=== PATIENT | male | born 1980 ===

== ENCOUNTER 2021-08-16 06:53 | Outpatient (REF) | payer OTHER, SELFPAY ==
[2021-08-16 07:03] LABS: MANUAL DIFF FLAG NO
[2021-08-16 07:16] LABS: Basophils Percent Auto 0.2 % (0-2); Eosinophils Absolute Auto 0.2 X10*3/uL (0.0-0.4); Eosinophils Percent Auto 2.7 % (0-4); Hematocrit 43.9 % (42.0-52.0); Hemoglobin 14.5 g/dl (14.0-18.0); Imm Gran Abs Auto 0.02 X10*3/uL (0.00-0.03); Imm Gran Pct Auto 0.2 % (0.0-0.4); Lymphocytes Absolute Auto 2.7 X10*3/uL (1.2-4.9); Mean Corpuscular Hemoglobin 30.6 pg (27.0-33.0); Mean Corpuscular Volume 92.6 fL (80.0-98.0); Mean Platelet Volume 10.4 fL (9.4-12.4); Monocytes Absolute Auto 0.7 X10*3/uL (0.1-1.2); Monocytes Percent Auto 8.8 % (2-11); Neutrophils Absolute Auto 4.6 x10*3/uL (2.0-8.3); Neutrophils Percent Auto 56.1 % (45-73); Platelet Count 380 X10*3/uL (160-400); Red Blood Count 4.74 X10*6/uL (4.60-5.80); Red Cell Distribution Width 13.3 % (11.0-16.0); White Blood Count 8.3 X10*3/uL (4.8-10.8)
[2021-08-16 07:44] LABS: Hemoglobin A1c % > 14.0 %
[2021-08-16 07:45] LABS: Alanine Aminotransferase 22 U/L (0-40); Albumin Level 4.4 g/dL (3.5-5.0); Alkaline Phosphatase 145 U/L (39-117); Anion Gap 13 (12-20); Aspartate Amino Transferase 14 U/L (5-37); Bilirubin Total 0.4 mg/dL (0.0-1.0); Blood Urea Nitrogen 9 mg/dL (9-16); Calcium 10.6 mg/dL (8.4-10.2); Carbon Dioxide 30 mmol/L (22-29); Chloride 97 mmol/L (96-108); Cholesterol 379 mg/dL; Estimated Glomerular Filt Rate > 60; HDL Cholesterol 39 mg/dL; Potassium 4.4 mmol/L (3.3-5.1); Sodium 136 mmol/L (135-145); Total Protein 7.8 g/dL (6.5-8.0); Triglycerides 630 mg/dL
[2021-08-16 08:30] LABS: Glucose Fasting 363 mg/dL (60-99)
[2021-08-16 09:09] LABS: Creatinine Urine 77.71 mg/dL; Microalbum/Creatinine Ratio Ur 6.4 ug/mg cr
== END 2021-08-16 06:54 | disposition home or self-care (01) ==
LOC: HO.LAB 06:53
PROVIDERS: PCP Internal Medicine; Visit Provider Internal Medicine
DX: Z00.00 Encounter for general adult medical examination without abnormal findings (principal); E11.9 Type 2 diabetes mellitus without complications; E03.9 Hypothyroidism, unspecified
CPT/HCPCS: 36415; 80053; 80061; 82043; 83036; 84443; 85025

== ENCOUNTER 2024-07-20 11:21 | Outpatient (AMB) | payer OTHER, SELFPAY ==
[2024-07-20 11:32] VITALS: BP 140/82; PULSE 83; O2SAT 98; BMI 29.7
--- NOTE | 2024-07-20 11:32 | A.OFFPC_ITS ---
Vital Signs 07/20/24 11:32 Height 5 ft 9 in Weight 201 lb BMI 29.7 BP 140/82 H Blood Pressure Location Lt brachial Position Sitting Pulse 83 Pulse Source Pulse Oximeter Pulse Oximetry (%) 98 Oxygen Delivery Method Room Air Intake Visit Reasons: depression and anxiety Allergies No Known Allergies Allergy (Verified 07/20/24 11:32) Medication List - Last Reconciled 07/20/24 by Dallin Mcdaniels MD aspirin (Adult Aspirin Regimen) 81 mg PO DAILY atorvastatin 80 mg PO DAILY blood sugar diagnostic (FreeStyle Lite Strips) As directed cholecalciferol (vitamin D3) 50 mcg PO DAILY clopidogrel 75 mg PO DAILY insulin glargine (Lantus Solostar U-100 Insulin) 10 units (0.1 mL) subcut QPM insulin lispro (Humalog KwikPen (U-100) Insulin) 1 sliding scale dose subcut USEASDIRECTD 30 days lancets (FreeStyle Lancets) As directed metformin 500 mg PO DAILY metoprolol tartrate 25 mg PO DAILY Tobacco use date assessed: 07/20/24 Dental Screening Dental Screen Date: 07/20/24 Did you have a dental visit in the last 12 months?: No Did you have a dental problem in the last 6 months where you did not have access to dental care?: No Was dental information given to patient?: Patient has dentist HPI depression and anxiety HPI Details DM and hyperlipidemia on rx; takes meds regularly [facility] Medical History (Updated 08/17/21 @ 10:14 by Dallin Mcdaniels MD) Hyperlipidemia associated with type 2 diabetes mellitus Obesity Type 2 diabetes mellitus with morbid obesity Surgical History (Updated 04/27/21 @ 13:30 by LIZ Nolan) History of ankle surgery Family History (Updated 04/27/21 @ 13:30 by LIZ Nolan) Mother No problems noted. Father No problems noted. Social History Housing: Apartment Patient Tobacco Use Status: Current everyday Tobacco user Tobacco use type: Cigarette Cigarettes Per Day: 5 e-Cigarette/Vaping Use: Never Used Second Hand Smoke Exposure: No service: No Current occupational status: unemployed Cognitive needs: No Hearing needs: No Vision needs: Yes Questionnaire PHQ-9 Over the last 2 weeks, how often have you been bothered by any of the following problems? 1. Little interest or pleasure in doing things: several days 2. Feeling down, depressed, or hopeless: several days 3. Trouble falling or staying asleep, or sleeping too much: nearly every day 4. Feeling tired or having little energy: several days 5. Poor appetite or overeating: several days 6. Feeling bad about yourself - or that you are a failure or have let yourself or your family down: not at all 7. Trouble concentrating on things, such as reading the newspaper or watching television: several days 8. Moving or speaking so slowly that other people could have noticed. Or the opposite - being so fidgety or restless that you have been moving around a lot more than usual: not at all 9. Thoughts that you would be better off or of hurting yourself in some way: not at all Total score: 8 Depression Screening Interpretation: Positive Depression Screening Done: Yes Source: Developed by Drs. Bakari Rust, Kary Crenshaw, Franky Hicks and colleagues, with an educational hernan from [employer]. Thrive Questionnaire Date Thrive assessed: 07/20/24 I am a: Patient What is your living situation today?: I have a steady place to live Within the past 12 months, did the food you bought not last and you didn't have the money to get more?: Never true Within the past 12 months, did you worry whether your food would run out before you got money to buy more?: Never true Do you have trouble paying for medicines?: No Do you have trouble getting transportation to medical appointments?: No Do you have trouble paying your heating and electricity bill?: No Do you have trouble taking care of your child, family member or friend?: No Do you have trouble with day-to-day activities such as bathing, preparing meals, shopping, managing finances, etc.?: No Are you currently unemployed and looking for a job?: No Are you interested in more education?: No Currently or been in a relationship where the following occur: No concerns reported THRIVE Score: 0 AUDIT C Alcohol Use Questionnaire (AUDIT-C) 1. How often do you have a drink containing alcohol?: 2-4 times a month 2. How many drinks containing alcohol do you have on a typical day when you are drinking?: 3 or 4 3. How often do you have six or more drinks on one occasion?: Never Total Score: 3 Score Reviewed/Action Taken: Yes CHICHI-7 AMB Questionnaire CHICHI-7 Date CHICHI - 7 assessed: 07/20/24 Feeling nervous, anxious, or on edge: 2 = More than half the days Not being able to stop or control worryin = More than half the days Worrying too much about different things: 2 = More than half the days Trouble relaxin = More than half the days Being so restless that it is hard to sit still: 0 = Not at all Becoming easily annoyed or irritable: 1 = Several days Feeling afraid as if something awful might happen: 0 = Not at all Total CHICHI-7 score (0-4 normal; 5-9 mild; 10-14 moderate; 15-21 severe): 9 Source: Developed by Drs. Bakari Rust, Kary Crenshaw, Franky Hicks and colleagues, with an educational hernan from [employer]. Review of Systems Const Denies chills, Denies headache(s) and Denies weight loss ENT Denies headache(s) Card Denies chest pain, Denies syncope, Denies irregular heart rhythm and Denies dyspnea Resp Denies chest congestion, Denies cough and Denies dyspnea GI Denies abdominal pain, Denies change in stool character, Denies nausea and Denies vomiting Musc Denies deformity and Denies joint swelling Neuro Denies syncope and Denies headache(s) Physical exam (Primary Care) Vital Signs: Last Vital Signs Pulse 83 07/20/24 11:32 BP 140/82 H 07/20/24 11:32 Pulse Ox 98 07/20/24 11:32 Oxygen Delivery Method Room Air 07/20/24 11:32 BMI result Body Mass Index 29.7 Tobacco/Smoking Status: Tobacco use Status Tobacco use date assessed 07/20/24 07/20/24 11:33 Patient Tobacco Use Status Current everyday Tobacco 07/20/24 11:33 Tobacco use type Cigarette 07/20/24 11:33 e-Cigarette/Vaping Use Never Used 07/20/24 11:33 PHQ-9: PHQ-9 Score PHQ-9: Total score 8 07/20/24 11:47 Depression Screening Interpretation: Positive Thrive Assessment: Date of Thrive Assessment Date Thrive assessed 07/20/24 07/20/24 11:33 Currently or been in a relationship where the following occur: No concerns reported Const General: cooperative, comfortable, no acute distress and alert Neck Neck: Yes no lymphadenopathy Thyroid: Thyroid normal Resp Effort & Inspection: normal respiratory effort Auscultation: clear to auscultation bilaterally Percussion: percussion normal Cardio Jugular venous distension: no JVD Palpation: normal PMI Rate: regular rate Rhythm: regular rhythm Heart sounds: S1 normal heart sound present and S2 normal heart sound present GI Inspection: Yes normal to inspection Palpation (GI): No hepatosplenomegaly present Skin General skin exam: no rashes or lesions noted Extrem General: Yes no clubbing, cyanosis or edema Results AMB Hemoglobin A1c AMB Hemoglobin A1c 11.4 % Last Edit by Evelyne Posada CMA on 07/20/24 11:48 Results Reviewed Results Reviewed: Laboratory Last Values Hgb A1c (Clinic) 11.4 % (4.0-6.0) H 07/20/24 11:34 Coding Level of Care Code Est Pt Level 3 (54390) Diagnoses Hyperlipidemia associated with type 2 diabetes mellitus E11.69; E78.5 Assessment & Plan Assessment & Plan (1) Hyperlipidemia associated with type 2 diabetes mellitus: Code(s): E11.69 - Type 2 diabetes mellitus with other specified complication; E78.5 - Hyperlipidemia, unspecified Category: Medical Plan: do labs and f/u Orders: Orders Lipid Panel Today Z13.220 - Encounter for screening for lipoid disorders Hemoglobin A1c Today R73.9 - Hyperglycemia, unspecified AMB Hemoglobin A1c Today Z13.9 - Encounter for screening, unspecified Thyroid Stimulating Hormone Today Z13.29 - Encounter for screening for other suspected endocrine disorder Microalbumin, Random (w Creat) Today E11.69 - Type 2 diabetes mellitus with other specified complication, E66.01 - Morbid (severe) obesity due to excess calories Complete Blood Count Auto Diff Today Z13.0 - Encounter for screening for diseases of the blood and blood-forming organs and certain disorders involving the immune mechanism Comprehensive [place]. Panel Fast Today Z13.9 - Encounter for screening, unspecified Medications: Refilled atorvastatin 80 mg PO DAILY 90 tabs 1RF insulin lispro (Humalog KwikPen (U-100) Insulin) 1 sliding scale dose subcut USEASDIRECTD 15 mL 4RF 30 days metformin 500 mg PO DAILY 90 tabs 1RF metoprolol tartrate 25 mg PO DAILY 90 tabs 1RF clopidogrel 75 mg PO DAILY 90 tabs 1RF insulin glargine (Lantus Solostar U-100 Insulin) 10 units (0.1 mL) subcut QPM 15 mL 1RF
== END 2024-07-20 12:03 | disposition home or self-care (01) ==
PROVIDERS: PCP Internal Medicine; Visit Provider Internal Medicine
DX: E11.69 Type 2 diabetes mellitus with other specified complication (principal); E78.5 Hyperlipidemia, unspecified; Z13.9 Encounter for screening, unspecified

== ENCOUNTER → 2024-07-20 11:21 | Outpatient (BNVA) | payer OTHER, SELFPAY | PROVIDERS: PCP Internal Medicine; Visit Provider Internal Medicine | DX: E11.69 Type 2 diabetes mellitus with other specified complication (principal); E78.5 Hyperlipidemia, unspecified | CPT/HCPCS: 83036; 99212 ==

== ENCOUNTER 2024-07-27 08:53 | Outpatient (REF) | payer OTHER, SELFPAY ==
[2024-07-27 09:09] LABS: MANUAL DIFF FLAG NO
[2024-07-27 09:51] LABS: Basophils Percent Auto 0.4 % (0-2); Eosinophils Absolute Auto 0.2 X10*3/uL (0.0-0.4); Eosinophils Percent Auto 2.3 % (0-4); Hematocrit 40.8 % (42.0-52.0); Hemoglobin 14.2 g/dl (14.0-18.0); Imm Gran Abs Auto 0.02 X10*3/uL (0.00-0.03); Imm Gran Pct Auto 0.3 % (0.0-0.4); Lymphocytes Absolute Auto 2.4 X10*3/uL (1.2-4.9); Mean Corpuscular HGB Conc 34.8 g/dl (31.0-36.0); Mean Corpuscular Hemoglobin 31.7 pg (27.0-33.0); Mean Corpuscular Volume 91.1 fL (80.0-98.0); Monocytes Absolute Auto 0.5 X10*3/uL (0.1-1.2); Monocytes Percent Auto 6.7 % (2-11); Neutrophils Absolute Auto 4.7 x10*3/uL (2.0-8.3); Neutrophils Percent Auto 59.3 % (45-73); Platelet Count 351 X10*3/uL (160-400); Red Blood Count 4.48 X10*6/uL (4.60-5.80); Red Cell Distribution Width 13.2 % (11.0-16.0); White Blood Count 7.9 X10*3/uL (4.8-10.8)
[2024-07-27 10:05] LABS: Estimated Average Glucose 309 mg/dL; Hemoglobin A1C 398.0097 umol/L; Hemoglobin A1c % 12.4 % (<6.0)
[2024-07-27 10:52] LABS: Creatinine Urine 104.99 mg/dL; Microalbum/Creatinine Ratio Ur 9.5 ug/mg cr (<30)
[2024-07-27 11:08] LABS: Alanine Aminotransferase 86 U/L (0-40); Albumin Level 4.3 g/dL (3.5-5.0); Alkaline Phosphatase 118 U/L (39-117); Anion Gap 14 (12-20); Aspartate Amino Transferase 19 U/L (5-37); Bilirubin Total 0.5 mg/dL (0.0-1.0); Blood Urea Nitrogen 7 mg/dL (9-16); Calcium 9.8 mg/dL (8.4-10.2); Carbon Dioxide 27 mmol/L (22-29); Chloride 98 mmol/L (96-108); Cholesterol 284 mg/dL (<200); Estimated Glomerular Filt Rate > 60; Glucose Fasting 407 mg/dL (60-99); HDL Cholesterol 37 mg/dL (>40); Potassium 3.9 mmol/L (3.3-5.1); Sodium 135 mmol/L (135-145); Total Protein 7.7 g/dL (6.5-8.0); Triglycerides 412 mg/dL (<150)
== END 2024-07-27 08:54 | disposition home or self-care (01) ==
LOC: HO.LAB 08:53
PROVIDERS: PCP Internal Medicine; Visit Provider Internal Medicine
DX: Z13.29 Encounter for screening for other suspected endocrine disorder (principal); Z13.220 Encounter for screening for lipoid disorders; E11.69 Type 2 diabetes mellitus with other specified complication; E66.01 Morbid (severe) obesity due to excess calories; Z13.0 Encounter for screening for diseases of the blood and blood-forming organs and certain disorders involving the immune mechanism; Z13.9 Encounter for screening, unspecified
CPT/HCPCS: 36415; 80053; 80061; 82043; 82570; 83036; 84443; 85025

== ENCOUNTER 2024-08-03 09:14 | Outpatient (AMB) | payer OTHER, SELFPAY ==
[2024-08-03 09:16] VITALS: BP 142/80; PULSE 89; O2SAT 97
--- NOTE | 2024-08-03 09:16 | MHC.PC.OV ---
Vital Signs 08/03/24 09:16 Height 5 ft 9 in Weight 203 lb BMI 30.0 BP 142/80 H Blood Pressure Location Lt brachial Position Sitting Pulse 89 Pulse Source Pulse Oximeter Pulse Oximetry (%) 97 Oxygen Delivery Method Room Air Intake Visit Reasons: Follow up for labs Allergies No Known Allergies Allergy (Verified 08/03/24 09:16) Medication List - Last Reconciled 08/03/24 by Dallin Mcdaniels MD aspirin (Adult Aspirin Regimen) 81 mg PO DAILY atorvastatin 80 mg PO DAILY blood sugar diagnostic (FreeStyle Lite Strips) As directed cholecalciferol (vitamin D3) 50 mcg PO DAILY clopidogrel 75 mg PO DAILY insulin glargine (Lantus Solostar U-100 Insulin) 10 units (0.1 mL) subcut QPM insulin lispro (Humalog KwikPen (U-100) Insulin) 1 sliding scale dose subcut USEASDIRECTD 30 days lancets (FreeStyle Lancets) As directed metformin 500 mg PO DAILY metoprolol tartrate 25 mg PO DAILY sertraline 25 mg PO DAILY Tobacco use date assessed: 07/20/24 Dental Screening Dental Screen Date: 07/20/24 HPI Follow up for labs HPI Details DM in poor control; not taking his insulin; needs refills [facility] Medical History (Updated 08/03/24 @ 10:11 by Dallin Mcdaniels MD) Hyperlipidemia associated with type 2 diabetes mellitus Obesity Type 2 diabetes mellitus with morbid obesity Surgical History (Updated 04/27/21 @ 13:30 by LIZ Nolan) History of ankle surgery Family History (Updated 04/27/21 @ 13:30 by LIZ Nolan) Mother No problems noted. Father No problems noted. Social History Housing: Apartment Patient Tobacco Use Status: Current everyday Tobacco user Tobacco use type: Cigarette Cigarettes Per Day: 5 e-Cigarette/Vaping Use: Never Used Second Hand Smoke Exposure: No service: No Current occupational status: unemployed Cognitive needs: No Hearing needs: No Vision needs: Yes Questionnaire Thrive Questionnaire Date Thrive assessed: 07/20/24 AUDIT C Alcohol Use Questionnaire (AUDIT-C) 1. How often do you have a drink containing alcohol?: 2-4 times a month 2. How many drinks containing alcohol do you have on a typical day when you are drinking?: 3 or 4 3. How often do you have six or more drinks on one occasion?: Never Total Score: 3 Score Reviewed/Action Taken: Yes CHICHI-7 AMB Questionnaire CHICHI-7 Date CHICHI - 7 assessed: 07/20/24 Source: Developed by Drs. Bakari Rust, Kary Crenshaw, Franky Hicks and colleagues, with an educational hernan from [employer]. Review of Systems Const Denies chills, Denies headache(s) and Denies weight loss ENT Denies headache(s) Card Denies chest pain, Denies syncope, Denies irregular heart rhythm and Denies dyspnea Resp Denies chest congestion, Denies cough and Denies dyspnea GI Denies abdominal pain, Denies change in stool character, Denies nausea and Denies vomiting Musc Denies deformity and Denies joint swelling Neuro Denies syncope and Denies headache(s) Physical exam (Primary Care) Vital Signs: Last Vital Signs Pulse 89 08/03/24 09:16 BP 142/80 H 08/03/24 09:16 Pulse Ox 97 08/03/24 09:16 Oxygen Delivery Method Room Air 08/03/24 09:16 BMI result Body Mass Index 30.0 Tobacco/Smoking Status: Tobacco use Status Tobacco use date assessed 07/20/24 08/03/24 09:17 Patient Tobacco Use Status Current everyday Tobacco 08/03/24 09:17 Tobacco use type Cigarette 08/03/24 09:17 e-Cigarette/Vaping Use Never Used 08/03/24 09:17 Thrive Assessment: Date of Thrive Assessment Date Thrive assessed 07/20/24 08/03/24 09:17 Const General: cooperative, comfortable, no acute distress and alert Neck Neck: Yes no lymphadenopathy Thyroid: Thyroid normal Resp Effort & Inspection: normal respiratory effort Auscultation: clear to auscultation bilaterally Percussion: percussion normal Cardio Jugular venous distension: no JVD Palpation: normal PMI Rate: regular rate Rhythm: regular rhythm Heart sounds: S1 normal heart sound present and S2 normal heart sound present GI Inspection: Yes normal to inspection Palpation (GI): No hepatosplenomegaly present Skin General skin exam: no rashes or lesions noted Extrem General: Yes no clubbing, cyanosis or edema Coding Level of Care Code Est Pt Level 3 (88781) Diagnoses Diabetes mellitus with hyperglycemia E11.65 Assessment & Plan Assessment & Plan (1) Diabetes mellitus with hyperglycemia: Code(s): E11.65 - Type 2 diabetes mellitus with hyperglycemia Category: Medical Plan: rx sent Orders: Orders Lipid Panel Today Z13.220 - Encounter for screening for lipoid disorders Hemoglobin A1c Today R73.9 - Hyperglycemia, unspecified Glucose Fasting Today R73.9 - Hyperglycemia, unspecified Medications: New sertraline 25 mg PO DAILY 30 tabs 3RF Refilled insulin lispro (Humalog KwikPen (U-100) Insulin) 1 sliding scale dose subcut USEASDIRECTD 15 mL 4RF 30 days insulin glargine (Lantus Solostar U-100 Insulin) 10 units (0.1 mL) subcut QPM 15 mL 1RF
== END 2024-08-03 11:23 | disposition home or self-care (01) ==
PROVIDERS: PCP Internal Medicine; Visit Provider Internal Medicine
DX: E11.65 Type 2 diabetes mellitus with hyperglycemia (principal)

== ENCOUNTER → 2024-08-03 09:14 | Outpatient (BNVA) | payer OTHER, SELFPAY | PROVIDERS: PCP Internal Medicine; Visit Provider Internal Medicine | DX: E11.65 Type 2 diabetes mellitus with hyperglycemia (principal) | CPT/HCPCS: 99212 ==

== ENCOUNTER 2025-05-26 10:58 | Outpatient (AMB) | payer OTHER, SELFPAY ==
[2025-05-26 11:00] VITALS: BP 160/90; PULSE 83; RESP 18; TEMP 36.3; O2SAT 98; BMI 30.3
--- NOTE | 2025-05-26 11:00 | MHC.PC.OV ---
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 Accompanied by: Self / Same As Patient Allergies No Known Allergies Allergy (Verified 05/26/25 11:18) Medication List - Last Reconciled 05/26/25 by SHIRLEY Borges aspirin (Adult Aspirin Regimen) 81 mg PO DAILY atorvastatin 80 mg PO DAILY blood sugar diagnostic (FreeStyle Lite Strips) As directed cholecalciferol (vitamin D3) 50 mcg PO DAILY clopidogrel 75 mg PO DAILY insulin glargine (Lantus Solostar U-100 Insulin) 10 units (0.1 mL) subcut QPM insulin lispro (Humalog KwikPen (U-100) Insulin) 1 sliding scale dose subcut USEASDIRECTD 30 days lancets (FreeStyle Lancets) As directed metformin 500 mg PO DAILY metoprolol tartrate 25 mg PO DAILY sertraline 25 mg PO DAILY Tobacco use date assessed: 05/26/25 Dental Screening Dental Screen Date: 05/26/25 Did you have a dental visit in the last 12 months?: Yes Did you have a dental problem in the last 6 months where you did not have access to dental care?: No Was dental information given to patient?: Patient has dentist HPI AUGUSTO DR Mcdaniels/ KAVEH HPI Details The patient is 44 year old male with significant past medical history of HTN, diabetes mellitus, HLD, obesity. The patient is transitioning care from Dr. Mcdaniels who retired Patient last labs reviewed showed A1c 10%, elevated cholesterol particularly triglycerides and elevated liver enzymes on labs in July of last year The patient blood pressure was also elevated in office. The patient reports medication compliance. He reports tingling in his toes. Patient denies chest pain, shortness of breath, heart palpitation or dizziness Patient is requesting a pT1 form, reports even though he has a car at times, he is unable to get it on the road, causing him to miss appointments. Reports that he has not had a physical in a while [facility], [facility] Medical History Hyperlipidemia associated with type 2 diabetes mellitus Obesity Type 2 diabetes mellitus with morbid obesity Surgical History History of ankle surgery Family History Mother No problems noted. Father No problems noted. Social History Housing: Apartment Patient Tobacco Use Status: Current everyday Tobacco user Tobacco use type: Cigarette Cigarettes Per Day: 5 e-Cigarette/Vaping Use: Never Used Second Hand Smoke Exposure: No service: No Current occupational status: unemployed Cognitive needs: No Hearing needs: No Vision needs: Yes Questionnaire PHQ-9 Over the last 2 weeks, how often have you been bothered by any of the following problems? 1. Little interest or pleasure in doing things: not at all 2. Feeling down, depressed, or hopeless: not at all 3. Trouble falling or staying asleep, or sleeping too much: nearly every day 4. Feeling tired or having little energy: more than half the days 5. Poor appetite or overeating: several days 6. Feeling bad about yourself - or that you are a failure or have let yourself or your family down: not at all 7. Trouble concentrating on things, such as reading the newspaper or watching television: not at all 8. Moving or speaking so slowly that other people could have noticed. Or the opposite - being so fidgety or restless that you have been moving around a lot more than usual: not at all 9. Thoughts that you would be better off or of hurting yourself in some way: not at all Total score: 6 Source: Developed by Drs. Bakari Rust, Kary Crenshaw, Franky Hicks and colleagues, with an educational hernan from [employer]. Thrive Questionnaire Date Thrive assessed: 07/20/24 I am a: Patient What is your living situation today?: I have a steady place to live Within the past 12 months, did the food you bought not last and you didn't have the money to get more?: Never true Within the past 12 months, did you worry whether your food would run out before you got money to buy more?: Never true Do you have trouble paying for medicines?: No Do you have trouble getting transportation to medical appointments?: No Do you have trouble paying your heating and electricity bill?: No Do you have trouble taking care of your child, family member or friend?: No Do you have trouble with day-to-day activities such as bathing, preparing meals, shopping, managing finances, etc.?: No Are you currently unemployed and looking for a job?: No Are you interested in more education?: No Please select the resources that you would like help with: None Currently or been in a relationship where the following occur: I choose not to answer THRIVE Score: 0 AUDIT C Alcohol Use Questionnaire (AUDIT-C) 1. How often do you have a drink containing alcohol?: Monthly or less 2. How many drinks containing alcohol do you have on a typical day when you are drinking?: 3 or 4 3. How often do you have six or more drinks on one occasion?: Never Total Score: 2 CHICHI-7 AMB Questionnaire CHICHI-7 Date CHICHI - 7 assessed: 07/20/24 Feeling nervous, anxious, or on edge: 0 = Not at all Not being able to stop or control worryin = Not at all Worrying too much about different things: 0 = Not at all Trouble relaxin = Several days Being so restless that it is hard to sit still: 0 = Not at all Becoming easily annoyed or irritable: 1 = Several days Feeling afraid as if something awful might happen: 0 = Not at all Total CHICHI-7 score (0-4 normal; 5-9 mild; 10-14 moderate; 15-21 severe): 2 Source: Developed by Drs. Bakari Rust, Kary Crenshaw, Franky Hicks and colleagues, with an educational hernan from [employer]. Review of Systems Const Denies headache(s) Eyes Denies loss of vision ENT Denies vertigo, Denies dizziness, Denies headache(s) and Denies sore throat Card Denies chest pain, Denies leg edema and Denies lightheadedness Resp Denies cough, Denies hemoptysis and Denies wheezing GI Denies abdominal pain, Denies melena, Denies constipation, Denies diarrhea and Denies vomiting Denies dysuria, Denies urinary frequency and Denies urinary urgency Musc Denies arthralgias, Denies joint swelling, Denies numbness and Reports tingling (bilateral toes) Neuro Denies Abnormal speech present, Denies behavioral changes, Denies vertigo, Denies dizziness, Denies headache(s), Denies loss of vision, Denies memory loss, Denies numbness and Reports tingling (bilateral toes) Psych Denies anxiety, Denies behavioral changes, Denies depression, Denies memory loss and Denies panic attacks Jourdan/Lymph Denies easy bleeding and Denies easy bruising Aller/Immun Denies wheezing Physical exam (Primary Care) Vital Signs: Last Vital Signs Temp 97.3 F 05/26/25 11:00 Pulse 83 05/26/25 11:00 Resp 18 05/26/25 11:00 BP 142/78 H 05/26/25 11:45 Pulse Ox 98 05/26/25 11:00 Oxygen Delivery Method Room Air 05/26/25 11:00 BMI result Body Mass Index 30.3 Tobacco/Smoking Status: Tobacco use Status Tobacco use date assessed 05/26/25 05/26/25 11:06 Patient Tobacco Use Status Current everyday Tobacco 05/26/25 11:06 Tobacco use type Cigarette 05/26/25 11:06 e-Cigarette/Vaping Use Never Used 05/26/25 11:06 PHQ-9: PHQ-9 Score PHQ-9: Total score 6 05/26/25 11:45 Thrive Assessment: Date of Thrive Assessment Date Thrive assessed 07/20/24 05/26/25 11:06 Currently or been in a relationship where the following occur: I choose not to answer Const General: healthy appearing, no acute distress, alert and awake Nutritional Appearance: well nourished Orientation/consciousness: oriented to person, oriented to place and oriented to time HENMT Ears: TM's normal bilaterally General nose exam: Normal nasal mucous membranes and turbinates present Eyes Conjunctivae: conjunctivae normal Sclerae: sclerae normal Pupils: Equal, round and reactive pupils present Neck Neck: Yes no lymphadenopathy and Yes no JVD Thyroid: Thyroid normal Carotids: no bruits Resp Effort & Inspection: normal respiratory effort and not tachypneic Auscultation: no crackles, no rales, no rhonchi and no wheezes Cardio Rate: regular rate Rhythm: regular rhythm Heart sounds: no murmurs and normal S1 and S2 GI Palpation (GI): Soft to palpation, nontender, no hepatomegaly and no splenomegaly Auscultation: normal bowel sounds Skin General skin exam: no rashes or lesions noted and dry skin Neuro General: oriented to person, oriented to place and oriented to time Cranial nerves: Yes Equal, round and reactive pupils present Speech: No Abnormal speech present Gait exam (Neuro): Normal gait present Motor exam (neuro): no tremor noted Extrem Right upper extremity: full ROM Left upper extremity: full ROM Right lower extremity: full ROM; no edema Left lower extremity: full ROM; no edema Psych Mental Status: mental status grossly normal Speech and movement: Normal speech and movement present Affect: normal affect Attitude: cooperative Thought process: Normal thought process present Results AMB Hemoglobin A1c AMB Hemoglobin A1c 10.0 % Last Edit by Audrey Palm CMA on 05/26/25 11:20 Results Reviewed Results Reviewed: Laboratory Last Values Hgb A1c (Clinic) 10.0 % (4.0-6.0) H 05/26/25 11:17 Coding Level of Care Code Est Pt Level 4 (12634) Diagnoses Hypertension, unspecified type I10 Hypertension type: unspecified Type 2 diabetes mellitus with morbid obesity E11.69; E66.01 Hyperlipidemia, unspecified hyperlipidemia type E78.5 Hyperlipidemia type: unspecified Class 1 obesity with serious comorbidity and body mass index (BMI) of 30.0 to 30.9 in adult, unspecified obesity type E66.811; Z68.30 Body mass index: BMI 30.0-30.9 Obesity classification: adult class 1 (BMI 30 - 34.9) Obesity type: unspecified obesity type Serious obesity comorbidity presence: with serious comorbidity Vitamin D deficiency E55.9 Elevated liver enzymes R74.8 Elevated alkaline phosphatase level R74.8 Time Spent (min) 39 Assessment & Plan Assessment & Plan (1) HTN (hypertension): Code(s): I10 - Essential (primary) hypertension Category: Medical Qualifiers: Hypertension type: unspecified Qualified Code(s): I10 - Essential (primary) hypertension Plan: Initial blood pressure was 160/90, rechecked blood pressure 142/78. Reinforced low-salt diet. Continue metoprolol 25 mg daily. Add hydrochlorothiazide 12.5 mg daily. Encouraged the patient to continue checking blood pressure at home and contact office if his systolic drops below 110 mmhg. Patient to return in 8 weeks for complete physical. (2) Type 2 diabetes mellitus with morbid obesity: Comment: 40 min reviewing chart eval pt and documenting; do labs and f/u 2-3 weeks Code(s): E11.69 - Type 2 diabetes mellitus with other specified complication; E66.01 - Morbid (severe) obesity due to excess calories Category: Medical Plan: A1c 10% in office today, previous was 12.4 % on 07/27/24, and 11.4 % on 07/20/24. Reinforced low sugar/carbohydrate diet and activity as tolerated. The patient is currently on Lantus 10 units daily. Reports that he has not taken his fast acting insulin, he is on metformin 500 mg daily. Discussed with the patient the risk of having an A1c of 10% for a prolonged period. The patient Lantus was increased to 14 units daily, metformin increase to 500 mg b.i.d. we will repeat A1c in 3 months. (3) HLD (hyperlipidemia): Code(s): E78.5 - Hyperlipidemia, unspecified Category: Medical Qualifiers: Hyperlipidemia type: unspecified Qualified Code(s): E78.5 - Hyperlipidemia, unspecified Plan: Triglycerides 412, total chol 284, HDL 37 Explained to the patient that his triglycerides are elevated because his blood sugar is not control. He is currently on atorvastatin 80 mg daily. The patient reports that he is compliant with medication; however, did not recognize the medication in chart. Encouraged low-cholesterol diet and med compliance. We will recheck lipid panel in 3 months (4) Obesity: Comment: see above Code(s): E66.9 - Obesity, unspecified Category: Medical Qualifiers: Body mass index: BMI 30.0-30.9 Obesity classification: adult class 1 (BMI 30 - 34.9) Obesity type: unspecified obesity type Serious obesity comorbidity presence: with serious comorbidity Qualified Code(s): E66.811 - Obesity, class 1; Z68.30 - Body mass index [BMI] 30.0-30.9, adult Plan: Encouraged to exercise for at least 30 minutes a day/5 days a week Healthy eating discussed. Encouraged to eat fruits/vegetables, protein-fish/baked chicken, and to avoid salty/fried foods, sweets, caffeine and carbohydrates. Encouraged to increase water intake 6-8 glasses a day (5) Vitamin D deficiency: Code(s): E55.9 - Vitamin D deficiency, unspecified Category: Medical Plan: Continue cholecalciferol 50 mcg daily (6) Elevated liver enzymes: Code(s): R74.8 - Abnormal levels of other serum enzymes Category: Medical Plan: We will repeat CMP Limits alcohol/drug containing Tylenol or acetaminophen/fatty foods intake (7) Elevated alkaline phosphatase level: Code(s): R74.8 - Abnormal levels of other serum enzymes Category: Medical Plan: Repeat CMP and add GGT to further evaluate Orders: Orders Complete Blood Count Auto Diff Today E11.65 - Type 2 diabetes mellitus with hyperglycemia, E11. - Type 2 diabetes mellitus with other specified complication, E78.5 - Hyperlipidemia, unspecified, I10 - Essential (primary) hypertension UA CC w/rflx Micro + Cult Today E11.65 - Type 2 diabetes mellitus with hyperglycemia, . - Type 2 diabetes mellitus with other specified complication, E78.5 - Hyperlipidemia, unspecified, I10 - Essential (primary) hypertension Vitamin D 25-OH Total Today E11.65 - Type 2 diabetes mellitus with hyperglycemia, E11.69 - Type 2 diabetes mellitus with other specified complication, E78.5 - Hyperlipidemia, unspecified, I10 - Essential (primary) hypertension AMB Hemoglobin A1c Today Z13.9 - Encounter for screening, unspecified Comprehensive [place]. Panel Fast Today E11.65 - Type 2 diabetes mellitus with hyperglycemia, E11.69 - Type 2 diabetes mellitus with other specified complication, E78.5 - Hyperlipidemia, unspecified, I10 - Essential (primary) hypertension Lipid Panel Today E11.65 - Type 2 diabetes mellitus with hyperglycemia, E11.69 - Type 2 diabetes mellitus with other specified complication, E78.5 - Hyperlipidemia, unspecified, I10 - Essential (primary) hypertension TSH reflex Free T4 Today E11.65 - Type 2 diabetes mellitus with hyperglycemia, E11.69 - Type 2 diabetes mellitus with other specified complication, E78.5 - Hyperlipidemia, unspecified, I10 - Essential (primary) hypertension Microalbumin, Random (w Creat) Today E11.65 - Type 2 diabetes mellitus with hyperglycemia, E11.69 - Type 2 diabetes mellitus with other specified complication, E78.5 - Hyperlipidemia, unspecified, I10 - Essential (primary) hypertension Gamma Glutamyl Transpeptidase Today R74.8 - Abnormal levels of other serum enzymes Referrals Cologuard Test Z12.11 - Encounter for screening for malignant neoplasm of colon, Z12.12 - Encounter for screening for malignant neoplasm of rectum Medications: New hydrochlorothiazide 12.5 mg PO DAILY 30 tabs 3RF Changed From insulin glargine (Lantus Solostar U-100 Insulin) 10 units (0.1 mL) subcut QPM 15 mL 1RF To insulin glargine (Lantus Solostar U-100 Insulin) 14 units (0.14 mL) subcut QPM 15 mL 3RF From metformin 500 mg PO DAILY 90 tabs 1RF To metformin 500 mg PO BID 180 tabs 3RF 90 days Discontinued insulin lispro (Humalog KwikPen (U-100) Insulin) Discontinued Reason: Patient Refused 1 sliding scale dose subcut USEASDIRECTD 30 days 15 mL 4RF
[2025-05-26 11:45] VITALS: BP 142/78
== END 2025-05-26 11:58 | disposition home or self-care (01) ==
LOC: HO.HMCH 10:59
PROVIDERS: PCP Internal Medicine
DX: I10 Essential (primary) hypertension (principal); E11.69 Type 2 diabetes mellitus with other specified complication; E66.01 Morbid (severe) obesity due to excess calories; E78.5 Hyperlipidemia, unspecified; E66.811 Obesity, class 1; Z68.30 Body mass index [BMI] 30.0-30.9, adult; E55.9 Vitamin D deficiency, unspecified; R74.8 Abnormal levels of other serum enzymes; Z13.9 Encounter for screening, unspecified

== ENCOUNTER → 2025-05-26 10:58 | Outpatient (BNVA) | payer OTHER, SELFPAY | PROVIDERS: PCP Internal Medicine | DX: I10 Essential (primary) hypertension (principal); E11.69 Type 2 diabetes mellitus with other specified complication; E66.01 Morbid (severe) obesity due to excess calories; E78.5 Hyperlipidemia, unspecified; E66.811 Obesity, class 1; Z68.30 Body mass index [BMI] 30.0-30.9, adult; E55.9 Vitamin D deficiency, unspecified; R74.8 Abnormal levels of other serum enzymes; Z79.4 Long term (current) use of insulin; Z79.84 Long term (current) use of oral hypoglycemic drugs; Z79.899 Other long term (current) drug therapy; Z13.30 Encounter for screening examination for mental health and behavioral disorders, unspecified | CPT/HCPCS: 83036; 99212 ==

== ENCOUNTER 2025-07-21 09:04 | Outpatient (REF) | payer OTHER, SELFPAY ==
[2025-07-21 09:32] LABS: MANUAL DIFF FLAG NO
[2025-07-21 10:30] LABS: Hematocrit 40.4 % (42.0-52.0); Hemoglobin 13.5 g/dl (14.0-18.0); Imm Gran Abs Auto 0.03 X10*3/uL (0.00-0.03); Imm Gran Pct Auto 0.4 % (0.0-0.4); Lymphocytes Absolute Auto 2.8 X10*3/uL (1.2-4.9); Mean Corpuscular HGB Conc 33.4 g/dl (31.0-36.0); Mean Corpuscular Hemoglobin 30.8 pg (27.0-33.0); Mean Corpuscular Volume 92.2 fL (80.0-98.0); NRBC Abs Auto 0.000 X10*3/uL (0.0-0.012); NRBC Pct Auto 0.0 /100WBC (0.0-0.2); Platelet Count 366 X10*3/uL (160-400); Red Blood Count 4.38 X10*6/uL (4.60-5.80); White Blood Count 7.9 X10*3/uL (4.8-10.8)
[2025-07-21 10:47] LABS: Appearance Urine Clear; Glucose Urine UA >=1000 mg/dL (Negative); PH 6.0 (5.0-9.0); Specific Gravity - Urine >= 1.030 (1.005-1.025); UMIC TRIGGER UACC YES
[2025-07-21 11:21] LABS: Alanine Aminotransferase 62 U/L (0-40); Albumin Level 4.4 g/dL (3.5-5.0); Alkaline Phosphatase 133 U/L (39-117); Anion Gap 14 (12-20); Aspartate Amino Transferase 21 U/L (5-37); Blood Urea Nitrogen 16 mg/dL (9-16); Calcium 9.9 mg/dL (8.4-10.2); Carbon Dioxide 27 mmol/L (22-29); Chloride 101 mmol/L (96-108); Cholesterol 284 mg/dL (<200); Estimated Glomerular Filt Rate > 60; Gamma Glutamyl Transpeptidase 73 U/L (11-51); HDL Cholesterol 38 mg/dL (>40); Potassium 4.6 mmol/L (3.3-5.1); Sodium 137 mmol/L (135-145); Total Protein 8.0 g/dL (6.5-8.0); Triglycerides 389 mg/dL (<150)
[2025-07-21 12:05] LABS: Microalbum/Creatinine Ratio Ur 20.1 ug/mg cr (<30)
== END 2025-07-21 09:05 | disposition home or self-care (01) ==
LOC: HO.LAB 09:04
DX: E11.65 Type 2 diabetes mellitus with hyperglycemia (principal); E11.69 Type 2 diabetes mellitus with other specified complication; E78.5 Hyperlipidemia, unspecified; I10 Essential (primary) hypertension; R74.8 Abnormal levels of other serum enzymes
CPT/HCPCS: 36415; 80053; 80061; 81001; 82043; 82306; 82570; 82977; 84443; 85025

== ENCOUNTER 2025-07-27 09:07 | Outpatient (AMB) | payer OTHER, SELFPAY ==
[2025-07-27 09:12] VITALS: BP 132/80; PULSE 73; RESP 16; TEMP 36.7; O2SAT 98; BMI 30.8
--- NOTE | 2025-07-27 09:12 | MHC.PC.OV ---
Vital Signs 07/27/25 09:12 Height 5 ft 9 in Weight 208 lb 6 oz BMI 30.8 BP 132/80 Blood Pressure Location Lt brachial Position Sitting Respiration 16 Pulse 73 Pulse Source Pulse Oximeter Temp 98.1 F Temp Source Temporal Artery Scan Pulse Oximetry (%) 98 Oxygen Delivery Method Room Air Intake Visit Reasons: Follow Up Front Office Attendant Required: No Accompanied by: Self / Same As Patient Allergies No Known Allergies Allergy (Verified 07/27/25 09:19) Medication List - Last Reconciled 07/27/25 by SHIRLEY Borges aspirin (Adult Aspirin Regimen) 81 mg PO DAILY atorvastatin 80 mg PO DAILY blood sugar diagnostic (FreeStyle Lite Strips) As directed cholecalciferol (vitamin D3) 50 mcg PO DAILY clopidogrel 75 mg PO DAILY hydrochlorothiazide 12.5 mg PO DAILY insulin glargine (Lantus Solostar U-100 Insulin) 14 units (0.14 mL) subcut QPM lancets (FreeStyle Lancets) As directed metformin 500 mg PO BID 90 days metoprolol tartrate 25 mg PO DAILY sertraline 25 mg PO DAILY Tobacco use date assessed: 07/27/25 Dental Screening Dental Screen Date: 07/27/25 Did you have a dental visit in the last 12 months?: Yes Did you have a dental problem in the last 6 months where you did not have access to dental care?: No Was dental information given to patient?: Patient has dentist HPI Follow Up HPI Details 11.4% increased from [facility] Medical History Hyperlipidemia associated with type 2 diabetes mellitus Obesity Type 2 diabetes mellitus with morbid obesity Surgical History History of ankle surgery Family History Mother No problems noted. Father No problems noted. Social History Housing: Apartment Patient Tobacco Use Status: Current everyday Tobacco user Tobacco use type: Cigarette Cigarettes Per Day: 5 e-Cigarette/Vaping Use: Never Used Second Hand Smoke Exposure: No service: No Current occupational status: unemployed Cognitive needs: No Hearing needs: No Vision needs: Yes Questionnaire PHQ-9 Over the last 2 weeks, how often have you been bothered by any of the following problems? 1. Little interest or pleasure in doing things: not at all 2. Feeling down, depressed, or hopeless: not at all 3. Trouble falling or staying asleep, or sleeping too much: nearly every day 4. Feeling tired or having little energy: more than half the days 5. Poor appetite or overeating: several days 6. Feeling bad about yourself - or that you are a failure or have let yourself or your family down: not at all 7. Trouble concentrating on things, such as reading the newspaper or watching television: not at all 8. Moving or speaking so slowly that other people could have noticed. Or the opposite - being so fidgety or restless that you have been moving around a lot more than usual: not at all 9. Thoughts that you would be better off or of hurting yourself in some way: not at all Total score: 6 Source: Developed by Drs. Bakari Rust, Kary Crenshaw, Franky Hicks and colleagues, with an educational hernan from [employer]. Thrive Questionnaire Date Thrive assessed: 05/26/25 I am a: Patient What is your living situation today?: I have a steady place to live Within the past 12 months, did the food you bought not last and you didn't have the money to get more?: Never true Within the past 12 months, did you worry whether your food would run out before you got money to buy more?: Never true Do you have trouble paying for medicines?: No Do you have trouble getting transportation to medical appointments?: No Do you have trouble paying your heating and electricity bill?: No Do you have trouble taking care of your child, family member or friend?: No Do you have trouble with day-to-day activities such as bathing, preparing meals, shopping, managing finances, etc.?: No Are you currently unemployed and looking for a job?: No Are you interested in more education?: No Please select the resources that you would like help with: None Currently or been in a relationship where the following occur: I choose not to answer THRIVE Score: 0 AUDIT C Alcohol Use Questionnaire (AUDIT-C) 1. How often do you have a drink containing alcohol?: Monthly or less 2. How many drinks containing alcohol do you have on a typical day when you are drinking?: 3 or 4 3. How often do you have six or more drinks on one occasion?: Never Total Score: 2 CHICHI-7 AMB Questionnaire CHICHI-7 Date CHICHI - 7 assessed: 07/20/24 Feeling nervous, anxious, or on edge: 0 = Not at all Not being able to stop or control worryin = Not at all Worrying too much about different things: 0 = Not at all Trouble relaxin = Several days Being so restless that it is hard to sit still: 0 = Not at all Becoming easily annoyed or irritable: 1 = Several days Feeling afraid as if something awful might happen: 0 = Not at all Total CHICHI-7 score (0-4 normal; 5-9 mild; 10-14 moderate; 15-21 severe): 2 Source: Developed by Drs. Bakari Rust, Kary Crenshaw, Franky Hicks and colleagues, with an educational hernan from [employer]. Physical exam (Primary Care) Vital Signs: Last Vital Signs Temp 98.1 F 07/27/25 09:12 Pulse 73 07/27/25 09:12 Resp 16 07/27/25 09:12 BP 132/80 07/27/25 09:12 Pulse Ox 98 07/27/25 09:12 Oxygen Delivery Method Room Air 07/27/25 09:12 BMI result Body Mass Index 30.8 Tobacco/Smoking Status: Tobacco use Status Tobacco use date assessed 07/27/25 07/27/25 09:21 Patient Tobacco Use Status Current everyday Tobacco 07/27/25 09:18 Tobacco use type Cigarette 07/27/25 09:18 e-Cigarette/Vaping Use Never Used 07/27/25 09:18 PHQ-9: PHQ-9 Score PHQ-9: Total score 6 07/27/25 09:33 Thrive Assessment: Date of Thrive Assessment Date Thrive assessed 05/26/25 07/27/25 09:18 Currently or been in a relationship where the following occur: I choose not to answer Results AMB Hemoglobin A1c AMB Hemoglobin A1c 11.4 % Last Edit by Nicole Mora MA on 07/27/25 10:20 Coding Assessment & Plan Assessment & Plan Orders: Orders AMB Hemoglobin A1c Today Z13.9 - Encounter for screening, unspecified Complete Blood Count Auto Diff 3 Months . - Type 2 diabetes mellitus with other specified complication, E55.9 - Vitamin D deficiency, unspecified, E66.01 - Morbid (severe) obesity due to excess calories, E66.811 - Obesity, class 1, E78.5 - Hyperlipidemia, unspecified, I10 - Essential (primary) hypertension, R74.8 - Abnormal levels of other serum enzymes, Z68.30 - Body mass index [BMI] 30.0-30.9, adult Comprehensive [place]. Panel Fast 3 Months - Type 2 diabetes mellitus with other specified complication, E55.9 - Vitamin D deficiency, unspecified, E66.01 - Morbid (severe) obesity due to excess calories, E66.811 - Obesity, class 1, E78.5 - Hyperlipidemia, unspecified, I10 - Essential (primary) hypertension, R74.8 - Abnormal levels of other serum enzymes, Z68.30 - Body mass index [BMI] 30.0-30.9, adult UA CC w/rflx Micro + Cult 3 Months - Type 2 diabetes mellitus with other specified complication, E55.9 - Vitamin D deficiency, unspecified, E66.01 - Morbid (severe) obesity due to excess calories, E66.811 - Obesity, class 1, E78.5 - Hyperlipidemia, unspecified, I10 - Essential (primary) hypertension, R74.8 - Abnormal levels of other serum enzymes, Z68.30 - Body mass index [BMI] 30.0-30.9, adult Lipid Panel 3 Months - Type 2 diabetes mellitus with other specified complication, E55.9 - Vitamin D deficiency, unspecified, E66.01 - Morbid (severe) obesity due to excess calories, E66.811 - Obesity, class 1, E78.5 - Hyperlipidemia, unspecified, I10 - Essential (primary) hypertension, R74.8 - Abnormal levels of other serum enzymes, Z68.30 - Body mass index [BMI] 30.0-30.9, adult Prothrombin Time INR 3 Months . - Type 2 diabetes mellitus with other specified complication, E55.9 - Vitamin D deficiency, unspecified, E66.01 - Morbid (severe) obesity due to excess calories, E66.811 - Obesity, class 1, E78.5 - Hyperlipidemia, unspecified, I10 - Essential (primary) hypertension, R74.8 - Abnormal levels of other serum enzymes, Z68.30 - Body mass index [BMI] 30.0-30.9, adult Hepatitis A,B,C Profile 3 Months . - Type 2 diabetes mellitus with other specified complication, E55.9 - Vitamin D deficiency, unspecified, E66.01 - Morbid (severe) obesity due to excess calories, E66.811 - Obesity, class 1, E78.5 - Hyperlipidemia, unspecified, I10 - Essential (primary) hypertension, R74.8 - Abnormal levels of other serum enzymes, Z68.30 - Body mass index [BMI] 30.0-30.9, adult Hemoglobin A1c 3 Months . - Type 2 diabetes mellitus with other specified complication, E55.9 - Vitamin D deficiency, unspecified, E66.01 - Morbid (severe) obesity due to excess calories, E66.811 - Obesity, class 1, E78.5 - Hyperlipidemia, unspecified, I10 - Essential (primary) hypertension, R74.8 - Abnormal levels of other serum enzymes, Z68.30 - Body mass index [BMI] 30.0-30.9, adult TSH reflex Free T4 3 Months . - Type 2 diabetes mellitus with other specified complication, E55.9 - Vitamin D deficiency, unspecified, E66.01 - Morbid (severe) obesity due to excess calories, E66.811 - Obesity, class 1, E78.5 - Hyperlipidemia, unspecified, I10 - Essential (primary) hypertension, R74.8 - Abnormal levels of other serum enzymes, Z68.30 - Body mass index [BMI] 30.0-30.9, adult IRON PROFILE 3 Months . - Type 2 diabetes mellitus with other specified complication, E55.9 - Vitamin D deficiency, unspecified, E66.01 - Morbid (severe) obesity due to excess calories, E66.811 - Obesity, class 1, E78.5 - Hyperlipidemia, unspecified, I10 - Essential (primary) hypertension, R74.8 - Abnormal levels of other serum enzymes, Z68.30 - Body mass index [BMI] 30.0-30.9, adult Vitamin B12 and Folate 3 Months . - Type 2 diabetes mellitus with other specified complication, E55.9 - Vitamin D deficiency, unspecified, E66.01 - Morbid (severe) obesity due to excess calories, E66.811 - Obesity, class 1, E78.5 - Hyperlipidemia, unspecified, I10 - Essential (primary) hypertension, R74.8 - Abnormal levels of other serum enzymes, Z68.30 - Body mass index [BMI] 30.0-30.9, adult Vitamin D 25-OH Total 3 Months E11.69 - Type 2 diabetes mellitus with other specified complication, E55.9 - Vitamin D deficiency, unspecified, E66.01 - Morbid (severe) obesity due to excess calories, E66.811 - Obesity, class 1, E78.5 - Hyperlipidemia, unspecified, I10 - Essential (primary) hypertension, R74.8 - Abnormal levels of other serum enzymes, Z68.30 - Body mass index [BMI] 30.0-30.9, adult Ferritin 3 Months E11.69 - Type 2 diabetes mellitus with other specified complication, E55.9 - Vitamin D deficiency, unspecified, E66.01 - Morbid (severe) obesity due to excess calories, E66.811 - Obesity, class 1, E78.5 - Hyperlipidemia, unspecified, I10 - Essential (primary) hypertension, R74.8 - Abnormal levels of other serum enzymes, Z68.30 - Body mass index [BMI] 30.0-30.9, adult Medications: New ezetimibe 10 mg PO DAILY 90 tabs 3RF Changed From insulin glargine (Lantus Solostar U-100 Insulin) 14 units (0.14 mL) subcut QPM 15 mL 3RF To insulin glargine (Lantus Solostar U-100 Insulin) 18 units (0.18 mL) subcut QPM 15 mL 3RF From metformin 500 mg PO BID 90 days 180 tabs 3RF To metformin 1,000 mg (2 x 500 mg) PO BID 360 tabs 3RF 90 days
--- OUTSIDE RECORDS SUMMARY | 2025-07-27 09:57 | XMS_ITS | Clinical Summary ---
Author Organization [facility] Address [address] [place] [address] Care Team Providers Care Gate Keeper Name Role Phone GiftyavivaSkylar Guzmán DO Primary Care Pro vider Social History Tobacco Use Types Packs/Day Years Used Date Smoking Tobacco: Never Assessed Sex and Gender Information Value Date Recorded Sex Assigned at Not on file Legal Sex Male 12:49 AM EST Gender Identity Not on file Sexual Orientation Not on file Plan of Treatment Health Maintenance Due Date Last Done Comments Colorectal Cancer Screening: Colonoscopy 1978 DTaP,Tdap,and Td Vaccines (1 - Tdap) 1997 Hepatitis B Vaccines (1 of 3 - 19+ 3-dose series) 1997 Cholesterol Screening (Lipid Panel) 09/30/2023 HIV Screening 09/30/2023 Hepatitis C Screening 09/30/2023 Social Influencers of Health Screening 09/30/2023 Depression Screening 09/01/2024 COVID-19 Vaccine ( - 2024-2 6 season) 2025 Influenza Vaccine (#1) 2025 RSV Immunization Adult Patie nts (1 - 1-dose 75+ series) 2053 HIB Vaccines Aged Out No longer eligi ble based on patient's age to complete this topic HPV Vaccines Aged Out No longer eligi ble based on patient's age to complete this topic Hepatitis A Vaccines Aged Out No long er eligible based on patient's age to complete this topic IPV Vaccines Aged Out No longer eligi ble based on patient's age to complete this topic MMR Vaccines Aged Out No longer eligi ble based on patient's age to complete this topic Meningococcal ACWY Vaccine Aged Out N o longer eligible based on patient's age to complete this topic Meningococcal B Vaccine Aged Out No l onger eligible based on patient's age to complete this topic Pneumococcal Vaccine: Pediat rics (0 to 5 Years) and At-Risk Patients (6 to 49 Years) Aged Out No longer eligible b ased on patient's age to complete this topic RSV Immunization Patients Un violet 20 months Aged Out No longer eligible b ased on patient's age to complete this topic Varicella Vaccines Aged Out No longer eligible based on patient's age to complete this topic Care Teams Gate Keeper Relationship Specialty Start Date End Date Skylar Salinas DO PCP - General Internal Medicine 06/27/15
== END 2025-07-27 10:05 | disposition home or self-care (01) ==
LOC: HO.HMCH 09:08
DX: Z13.9 Encounter for screening, unspecified (principal)

== ENCOUNTER → 2025-07-27 09:07 | Outpatient (BNVA) | payer OTHER, SELFPAY | DX: E11.65 Type 2 diabetes mellitus with hyperglycemia (principal); E78.5 Hyperlipidemia, unspecified; D64.9 Anemia, unspecified; I10 Essential (primary) hypertension; E66.811 Obesity, class 1; E55.9 Vitamin D deficiency, unspecified; R74.8 Abnormal levels of other serum enzymes; Z68.30 Body mass index [BMI] 30.0-30.9, adult; Z79.4 Long term (current) use of insulin | CPT/HCPCS: 83036; 99212 ==